=== PATIENT | female | born 1980 | race African-American/Black ===

== ENCOUNTER 2023-09-29 08:01 | Day surgery (SDC) | payer OTHER ==
[2023-09-25 14:32] VITALS: BMI 42.5
[2023-09-25 16:46] LABS: Hematocrit 32.6 % (34.9-44.5); Hemoglobin 10.5 g/dL (12.0-15.5); Mean Corpuscular HGB CONC 32.2 g/dL (32.0-36.0); Mean Corpuscular Hemoglobin 25.5 pg (27.0-33.0); Mean Corpuscular Volume 79.1 fL (81.6-98.3); Mean Platelet Volume 9.5 fL (7.4-10.4); Platelet Count 445 10x3/uL (150-450); RBC Distribution Width 14.9 % (11.5-14.5); Red Blood Cell (RBC) Count 4.12 10x6/uL (3.90-5.03); White Blood Cell (WBC) Count 8.2 10x3/uL (3.5-10.5)
[2023-09-25 16:54] LABS: BHCG - Serum Negative (NEGATIVE); Pregs Control Background? CLEAR/WHITE (CLR/WHITE); Pregs Control Bar Appear? YES (CONTROL BAR)
[2023-09-29] MEDS ORDERED: CeleCOXIB 100 MG CAP ONE (08:31)
[2023-09-29] MEDS ORDERED: Gabapentin 300 MG CAP ONE (08:31)
[2023-09-29] MEDS ORDERED: Famotidine/PF 20 mg/2ml Vial ONE ×2 (08:31→10:02)
[2023-09-29] MEDS ORDERED: CEFAZOLIN 2 GM VIAL ONE (09:54)
[2023-09-29] MEDS ORDERED: fentaNYL 50 mcg/mL 1 mL Vial ONE ×3 (10:01→13:09)
[2023-09-29] MEDS ORDERED: Ketorolac Tromethamine 30 MG (1 mL) VIAL ONE (10:01)
[2023-09-29] MEDS ORDERED: Dexamethasone 4 mg/ml Vial ONE (10:01)
[2023-09-29] MEDS ORDERED: Lidocaine 2% PF 5 ML VIAL ONE (10:01)
[2023-09-29] MEDS ORDERED: PROPOFOL 20 ML ONE (10:01)
[2023-09-29] MEDS ORDERED: Ondansetron PF 4 MG/2 ML Vial ONE (10:01)
[2023-09-29] MEDS ORDERED: Rocuronium Bromide 10 MG/ML (10ML VIAL) ONE (10:01)
[2023-09-29] MEDS ORDERED: Metoclopramide HCl 10 MG (2 mL) VIAL ONE (10:01)
[2023-09-29] MEDS ORDERED: SUGAMMADEX SODIUM 200 MG/2 ML VIAL ONE (10:02)
[2023-09-29] MEDS ORDERED: metroNIDAZOLE 500 MG (100 mL) BAG ONE (10:13)
[2023-09-29] MEDS ORDERED: EPINEPHrine 1 MG/ML VIAL ONE (10:16)
[2023-09-29] MEDS ORDERED: Bupivacaine PF 0.5% 30 ML VIAL ONE (10:16)
[2023-09-29] MEDS ORDERED: Metoprolol Tartrate 5 MG (5 mL) VIAL ONE (11:00)
[2023-09-29] MEDS ORDERED: Promethazine HCl 25 MG/ML VIAL ONE (13:02)
[2023-09-29] MEDS ORDERED: HYDROcodone/Acetaminophen 5/325 mg Tablet ONE (14:09)
== END 2023-09-29 15:30 | disposition home or self-care (01) ==
LOC: CSHSDC 08:01
PROVIDERS: ATTEND Obstetrics & Gynecology
PROC: 0UT74ZZ Resection of Bilateral Fallopian Tubes, Percutaneous Endoscopic Approach (ICD-10-PCS; principal; 2023-09-29)
PROC: 0UT94ZZ Resection of Uterus, Percutaneous Endoscopic Approach (ICD-10-PCS; principal; 2023-09-29)
DX: D25.0 Submucous leiomyoma of uterus (principal); N80.03 Adenomyosis of the uterus; N72 Inflammatory disease of cervix uteri; N73.6 Female pelvic peritoneal adhesions (postinfective); N85.00 Endometrial hyperplasia, unspecified; N83.8 Other noninflammatory disorders of ovary, fallopian tube and broad ligament; E66.9 Obesity, unspecified; Z98.51 Tubal ligation status; Z87.59 Personal history of other complications of pregnancy, childbirth and the puerperium; Z88.5 Allergy status to narcotic agent; Z90.49 Acquired absence of other specified parts of digestive tract; Z68.41 Body mass index [BMI] 40.0-44.9, adult
CPT/HCPCS: 84703; 85027; 86850; 86900; 86901; 88307; C9250; J0171; J0665; J1100; J1885; J2001; J2405; J2550; J2704; J2765; J3010; S0028